=== PATIENT | female | born 2000 | race African-American/Black ===

== ENCOUNTER 2020-08-25 11:16 | Emergency (ER) | payer MEDICAID ==
[~2020-08-25] VITALS: Ht 177.8 cm; Wt 75.0 kg
[2020-08-25] MEDS ORDERED: ACETAMINOPHEN 500 MG TABLET PO ONE (12:15)
[2020-08-25 14:16] LABS: BASOPHILS % (AUTO) 0.4 % (0.0-2.0); EOSINOPHILS % (AUTO) 0.1 % (1.0-6.0); HEMATOCRIT 42.9 % (36-46); HEMOGLOBIN 14.1 g/dL (12.0-16.0); LYMPHOCYTES # (AUTO) 2.8 K/uL (1.0-4.8); MEAN CORPUSCULAR HEMOGLOBIN 29.5 pg (26.0-34.0); MEAN CORPUSCULAR HGB CONC 32.9 G/dL (31.0-37.0); MEAN CORPUSCULAR VOLUME 90 fL (80-100); MONOCYTES # (AUTO) 1.3 K/uL (0.1-1.0); MONOCYTES % (AUTO) 10.4 % (2.0-9.0); NEUTROPHILS # (AUTO) 8.4 K/uL (1.8-7.7); NEUTROPHILS % (AUTO) 67.1 % (40.0-70.0); PLATELET COUNT (AUTO) 188 K/uL (150-450); RED BLOOD CELL COUNT(AUTO) 4.78 MIL/uL (4.00-5.20); RED CELL DISTRIBUTION WIDTH 13.7 % (11.5-14.5)
[2020-08-25 14:46] LABS: ANION GAP 18 mmol/L (8-16); CALCIUM, TOTAL 8.8 mg/dL (8.8-10.5); CARBON DIOXIDE 16 mmol/L (22-29); CHLORIDE 108 mmol/L (98-107); CREATININE 0.95 mg/dL (0.60-1.30); GLOMERULAR FILTR. RATE CALC > 60 mL/min (>60); GLUCOSE,RANDOM 55 mg/dL (70-110); POTASSIUM 3.7 mmol/L (3.5-5.1); SODIUM SERUM 142 mmol/L (136-145); UREA NITROGEN, BLOOD 15 mg/dL (7-18)
[2020-08-25 15:00] LABS: ALANINE AMINOTRANSFERASE 28 U/L (12-78); ALBUMIN 4.4 g/dL (3.4-5.0); ALKALINE PHOSPHATASE 82 U/L (46-116); ASPARTATE AMINOTRANSFERASE 48 U/L (15-37); BILIRUBIN,TOTAL 0.3 mg/dL (0.1-1.0); HCG,QUANTITATIVE < 1 mIU/mL (0-6); TOTAL PROTEIN, SERUM 7.9 g/dL (6.4-8.2)
[2020-08-25 15:43] LABS: AMPHET/METH SCREEN,URINE NEGATIVE (NEGATIVE); BARBITURATE SCREEN, URINE NEGATIVE (NEGATIVE); BENZODIAZEPINES SCREEN,URINE NEGATIVE (NEGATIVE); CANNABINOID SCREEN,URINE POSITIVE (NEGATIVE); COCAINE SCREEN,URINE NEGATIVE (NEGATIVE); METHADONE SCREEN, URINE NEGATIVE (NEGATIVE); OPIATE SCREEN,URINE NEGATIVE (NEGATIVE); PHENCYCLIDINE SCREEN,URINE NEGATIVE (NEGATIVE)
[2020-08-25 17:40] LABS: GLUCOSE,POINT OF CARE 55 MG/DL (70-110)
[2020-08-25 18:15] LABS: GLUCOSE,POINT OF CARE 74 MG/DL (70-110)
[2020-08-25] MEDS ORDERED: IBUPROFEN 600 MG TABLET PO ONE (18:15)
[2020-08-25 18:17] VITALS: BP 133/86
== END 2020-08-25 18:19 | disposition home or self-care (01) ==
LOC: EMS 11:16
DX: S01.511A Laceration without foreign body of lip, initial encounter (principal); I10 Essential (primary) hypertension; F17.210 Nicotine dependence, cigarettes, uncomplicated; F12.90 Cannabis use, unspecified, uncomplicated; Y04.2XXA Assault by strike against or bumped into by another person, initial encounter; Y93.39 Activity, other involving climbing, rappelling and jumping off; Y92.89 Other specified places as the place of occurrence of the external cause; Y99.8 Other external cause status
CPT/HCPCS: 36415; 70450; 72125; 80053; 80307; 81025; 82962; 84702; 85025; 99285; G0480

== ENCOUNTER 2023-05-03 21:20 | Emergency (ER) | payer MEDICAID ==
[~2023-05-03] VITALS: Ht 172.7 cm; Wt 75.9 kg
[2023-05-03 21:30] VITALS: TEMP 98.2
[2023-05-04] VITALS: BP 134/71; PULSE 91; RESP 15
[2023-05-04] MEDS ORDERED: CIPOTIC AD (00:27)
[2023-05-04] MEDS ORDERED: IBUP-1492 PO (00:27)
[2023-05-04] MEDS ORDERED: SULF-261 PO (00:27)
[2023-05-04] MEDS ORDERED: CefTRIAXone SODIUM 1 GM/VIAL IM ONE (00:30)
[2023-05-04] MEDS ORDERED: LIDOCAINE/PF 1% 2 ML VIAL IM ONE (00:30)
== END 2023-05-04 01:21 | disposition home or self-care (01) ==
LOC: EDUNIT# 21:20 → EMS 21:24
DX: H60.91 Unspecified otitis externa, right ear (principal); H66.91 Otitis media, unspecified, right ear; F17.210 Nicotine dependence, cigarettes, uncomplicated; F12.90 Cannabis use, unspecified, uncomplicated
CPT/HCPCS: 99283; 87205; 87070; 96372; J0696; J3490

== ENCOUNTER 2024-05-29 18:32 | Emergency (ER) | payer MEDICAID ==
[~2024-05-29] VITALS: Ht 175.3 cm; Wt 88.0 kg
[~2024-05-29 18:32] MED LIST: CIPOTIC AD; IBUP-1492 PO; SULF-261 PO
[2024-05-29 19:15] VITALS: BP 120/90; PULSE 110; RESP 16; TEMP 98; O2SAT 98
[2024-05-29] MEDS ORDERED: LORazepam 2 MG/ML VIAL ONE (19:35)
[2024-05-29] MEDS ORDERED: HALOPERIDOL LACTATE 5 MG/ML VIAL ONE (19:35)
[2024-05-29] MEDS ORDERED: DiphenhydrAMINE HCL 50 MG/ML VIAL ONE (19:35)
[2024-05-29] MEDS: LORazepam 2 MG/ML VIAL IM ONE (19:46)
[2024-05-29] MEDS: BACITRACIN 0.9 GM PACKET OINTMENT TP ONE (19:46)
[2024-05-29] MEDS: HALOPERIDOL LACTATE 5 MG/ML VIAL IM ONE (19:46)
[2024-05-29] MEDS: DiphenhydrAMINE HCL 50 MG/ML VIAL IM ONE (19:46)
[2024-05-29 22:34] LABS: BASOPHILS % (AUTO) 0.3 % (0.0-2.0); EOSINOPHILS % (AUTO) 1.7 % (1.0-6.0); HEMATOCRIT 43.7 % (36-46); HEMOGLOBIN 14.1 g/dL (12.0-16.0); LYMPHOCYTES # (AUTO) 1.9 K/uL (1.0-4.8); LYMPHOCYTES % (AUTO) 25.6 % (22.0-44.0); MEAN CORPUSCULAR HEMOGLOBIN 29.8 pg (26.0-34.0); MEAN CORPUSCULAR HGB CONC 32.3 G/dL (31.0-37.0); MEAN CORPUSCULAR VOLUME 92 fL (80-100); MONOCYTES # (AUTO) 0.5 K/uL (0.1-1.0); MONOCYTES % (AUTO) 6.3 % (2.0-9.0); NEUTROPHILS # (AUTO) 4.9 K/uL (1.8-7.7); NEUTROPHILS % (AUTO) 66.1 % (40.0-70.0); PLATELET COUNT (AUTO) 175 K/uL (150-450); RED BLOOD CELL COUNT(AUTO) 4.74 MIL/uL (4.00-5.20); RED CELL DISTRIBUTION WIDTH 14.6 % (11.5-14.5); WHITE BLOOD COUNT (AUTO) 7.3 K/uL (4.5-11.0)
[2024-05-29 22:43] LABS: ANION GAP 10 mmol/L (8-16); CARBON DIOXIDE 21 mmol/L (22-29); CHLORIDE 107 mmol/L (98-107); CREATININE 0.93 mg/dL (0.60-1.30); GLOMERULAR FILTR. RATE CALC > 60 mL/min (>60); GLUCOSE,RANDOM 71 mg/dL (70-110); SODIUM SERUM 137 mmol/L (136-145); UREA NITROGEN, BLOOD 11 mg/dL (7-18)
[2024-05-29 22:44] LABS: ALCOHOL, BLOOD (SERUM) 87 mg/dL (0-10)
[2024-05-29 22:53] LABS: B-TYPE NATRIURETIC PEPTIDE 6 pg/mL (0-100)
[2024-05-29 23:08] LABS: ALANINE AMINOTRANSFERASE 28 U/L (12-78); ALBUMIN 3.3 g/dL (3.4-5.0); ALKALINE PHOSPHATASE 90 U/L (46-116); ASPARTATE AMINOTRANSFERASE 66 U/L (15-37); BILIRUBIN,TOTAL 0.2 mg/dL (0.1-1.0); CREATINE KINASE, TOTAL ONLY 914 U/L (26-192); TROPONIN I-HIGH SENSITIVITY 9 ng/L (<51)
== END 2024-05-29 23:13 ==
LOC: EMS 18:34
DX: S00.81XA Abrasion of other part of head, initial encounter (principal); R45.1 Restlessness and agitation; F10.129 Alcohol abuse with intoxication, unspecified; M54.2 Cervicalgia; F12.90 Cannabis use, unspecified, uncomplicated; F17.210 Nicotine dependence, cigarettes, uncomplicated; Z79.899 Other long term (current) drug therapy; Y04.0XXA Assault by unarmed brawl or fight, initial encounter; Y93.89 Activity, other specified; Y92.89 Other specified places as the place of occurrence of the external cause; Y99.8 Other external cause status; Y90.9 Presence of alcohol in blood, level not specified
CPT/HCPCS: 99291; 70450; 80048; 80076; 82550; 83880; 84484; 84703; 85025; 85730; 72125; 93005; 96372; G0480; J1200; J1630; J2060